=== PATIENT | female | born 1960 | race Caucasian/White ===

== ENCOUNTER → 2017-12-10 | Outpatient (CLI) | payer OTHER ==
[~2017-12-10] MED LIST: ASPI-496 PO; CYAN100072 PO; LISI-170 PO; MAGN250T2 PO; METO25TA35 PO; MULT-672 PO; potassium PO
[2017-12-10 11:23] LABS: BASOPHILS # (AUTO) 0.05 x10^3/uL (0-0.1); BASOPHILS % (AUTO) 1 % (0-1); EOSINOPHILS # (AUTO) 0.15 x10^3/uL (0-0.4); EOSINOPHILS % (AUTO) 3 % (1-7); LYMPHOCYTES # (AUTO) 1.24 x10^3/uL (1-3.4); LYMPHOCYTES % (AUTO) 23 % (22-44); MD NO; MEAN CORPUSCULAR HEMOGLOBIN 36.1 pg (27.0-34.8); MEAN CORPUSCULAR HGB CONC 33.8 g/dL (32.4-35.8); MEAN CORPUSCULAR VOLUME 106.8 fL (80-100); MEAN PLATELET VOLUME 8.2 fL (7.4-10.4); MONOCYTES # (AUTO) 0.47 x10^3/uL (0.2-0.8); MONOCYTES % (AUTO) 9 % (2-9); NEUTROPHILS # (AUTO) 3.58 x10^3/uL (1.8-6.8); NEUTROPHILS % (AUTO) 65 % (42-75); PLATELET COUNT 304 x10^3/uL (130-400); RED BLOOD COUNT 3.78 x10^6/uL (3.82-5.3); RED CELL DISTRIBUTION WIDTH 13.9 % (9.6-15.2)
[2017-12-10 11:33] LABS: CHLORIDE 107 mmol/L (98-107)
[2017-12-10 11:34] LABS: ANION GAP 8 mmol/L (5-15); CALCIUM 8.9 mg/dL (8.5-10.1)
[2017-12-10 11:36] LABS: MICROSCOPIC AUTO
[2017-12-10 11:38] LABS: CULTURE INDICATED? NO
[2017-12-10 11:41] LABS: ALANINE AMINOTRANSFERASE 61 U/L (12-78); ALKALINE PHOSPHATASE 49 U/L (45-117); BILIRUBIN,TOTAL 0.6 mg/dL (0.2-1.0); CREATININE 0.84 mg/dL (0.55-1.02); TOTAL PROTEIN 7.8 g/dL (6.4-8.2)
== END ==
LOC: STAR 09:59
PROVIDERS: ATTEND Obstetrics & Gynecology
DX: Z01.818 Encounter for other preprocedural examination (principal); R93.8 Abnormal findings on diagnostic imaging of other specified body structures; I10 Essential (primary) hypertension; R00.1 Bradycardia, unspecified
CPT/HCPCS: 36415; 71046; 80053; 81001; 84703; 85025; 93005

== ENCOUNTER 2017-12-17 06:04 | Day surgery (SDC) | payer OTHER ==
[~2017-12-17] VITALS: Ht 165.1 cm; Wt 84.5 kg
[2017-12-17] MEDS ORDERED: SILVER NITRATE STICK TP ONE (06:58)
[2017-12-17] MEDS ORDERED: BUPIVACAINE/PF 0.25% ONE (06:58)
[2017-12-17] MEDS ORDERED: VASOPRESSIN 20 UNIT/ML, 1ML ONE (06:58)
[2017-12-17 06:59] VITALS: BP 156/99
[2017-12-17] MEDS ORDERED: LIDOCAINE-MPF 1%, 2ML ONE (07:11)
[2017-12-17] MEDS ORDERED: FENTANYL PF 250 MCG/5ML ONE (07:13)
[2017-12-17] MEDS ORDERED: MIDAZOLAM 1 MG/ML, 2ML ONE (07:13)
[2017-12-17] MEDS ORDERED: LACTATED RINGERS 1,000 ML IV SCH (07:17)
[2017-12-17] MEDS ORDERED: SUCCINYLCHOLINE 20 MG/ML, 10ML ONE (07:24)
[2017-12-17] MEDS ORDERED: PROPOFOL 10 MG/ML, 20ML ONE (07:24)
[2017-12-17] MEDS ORDERED: KETOROLAC 30 MG/1 ML ONE (07:24)
[2017-12-17] MEDS ORDERED: DEXAMETHASONE 4 MG/ML, 1ML ONE (07:24)
[2017-12-17] MEDS ORDERED: ONDANSETRON 2MG/ML, 2ML ONE (07:24)
[2017-12-17] MEDS ORDERED: HYDROmorphone 1 MG/ML, 1ML IV PRN (08:00)
[2017-12-17] MEDS ORDERED: OXYcodone 5 MG/5 ML ORAL.SOL UDC PO PRN (08:00)
[2017-12-17] MEDS ORDERED: ONDANSETRON 2MG/ML, 2ML IVPush PRN (08:00)
[2017-12-17] MEDS ORDERED: ACETAMINOPHEN 325 MG TABLET PO PRN (08:00)
[2017-12-17] MEDS ORDERED: HYDROcodone/APAP 7.5-325MG/15ML UDC PO PRN (08:00)
[2017-12-17] MEDS ORDERED: PROMETHAZINE 12.5 MG SUPP PR PRN (08:00)
[2017-12-17] MEDS ORDERED: FENTANYL PF 100 MCG/2ML IV PRN (08:00)
== END 2017-12-17 10:45 ==
LOC: OUT 06:04
PROVIDERS: ATTEND Obstetrics & Gynecology
DX: N84.0 Polyp of corpus uteri (principal); N85.8 Other specified noninflammatory disorders of uterus; Z78.0 Asymptomatic menopausal state; I10 Essential (primary) hypertension; Z88.1 Allergy status to other antibiotic agents
CPT/HCPCS: 58558; 88305; J0330; J1100; J1885; J2250; J2405; J2704; J3010; J3490; J7120